=== PATIENT | male | born 1935 | race Caucasian/White ===

== ENCOUNTER 2016-10-12 12:43 | Emergency (ER) | payer OTHER ==
[2016-10-12 12:52] VITALS: RESP 18
--- NOTE | 2016-10-12 13:05 | CPEKG ---
Heart Rate: 73 RR Interval: 822 P-R Interval: 200 QRSD Interval: 92 QT Interval: 380 QTC Interval: 419 P [place]: -24 QRS [place]: -7 T Wave [place]: 63 EKG Severity - NORMAL ECG - EKG Impression: SINUS RHYTHM Electronically Signed By: Miguel Fuentes 12-Oct-2016 14:01:41
--- NOTE | 2016-10-12 13:06 | EDPHY ---
H & P Stated Complaint: htn /saw pcp last week for same(pcp did not want to start on meds yet) Time Seen by Provider: 10/12/16 12:59 HPI/ROS: CHIEF COMPLAINT: Hypertension HISTORY OF PRESENT ILLNESS: The patient presents to the ED with persistent hypertension for the past week. The patient reportedly checked his blood pressure today and found that it was 210/120 at home. The patient has had some generalized weakness but denies specific headache, chest pain, shortness of breath, numbness, weakness or additional complaints. The patient does have a history of hypertension and was on medications 1 year ago. Those medications were stopped after he was diagnosed with a pulmonary embolism. The patient currently takes Eliquis as his only medication. The patient did see his primary care provider earlier in the week who is reluctant to restart medications for hypertension based upon the patient's intermittent hypertension. REVIEW OF SYSTEMS: A comprehensive 10 point review of systems is otherwise negative aside from elements mentioned in the history of present illness. Source: Patient Exam Limitations: No limitations - Personal History Current Tetanus/Diphtheria Vaccine: Yes Tetanus Vaccine Date: < 10 years - Medical/Surgical History Hx Asthma: No Hx Chronic Respiratory Disease: No Hx Diabetes: No Hx Cardiac Disease: Yes Hx Renal Disease: No Hx Cirrhosis: No Hx Alcoholism: No Hx HIV/AIDS: No Hx Splenectomy or Spleen Trauma: No Other PMH: Chronic bronchitis, asthma, PNA, HTN, macular degeneration, spinal stenosis, hernia repiar/PE - Social History Smoking Status: Never smoked Constitutional: Initial Vital Signs Temperature (C) 36.3 C 10/12/16 12:48 Heart Rate 88 10/12/16 12:48 Respiratory Rate 18 10/12/16 12:48 Blood Pressure 175/118 H 10/12/16 12:48 O2 Sat (%) 97 10/12/16 12:48 O2 Delivery Mode Room Air Allergies/Adverse Reactions: No Known Allergies Allergy (Verified 10/12/16 12:44) Home Medications: Medication Instructions Recorded Herbals/Supplements -Info Only 1 ea PO DAILY 09/12/15 Apixaban [Eliquis] 5 mg PO BID #45 tablet 09/19/15 Apixaban [Eliquis] 5 mg PO BID #14 tablet 10/12/16 amLODIPine BESYLATE [Norvasc 2.5 2.5 mg PO DAILY #30 tab 10/12/16 mg (*)] Medical Decision Making - Diagnostics EKG Interpretation: EKG: Complete interpretation has been separately recorded in the [employer] archive. Summary impression: Sinus rhythm, rate 73 ED Course/Re-evaluation: I reviewed the patient's past medical records. I did do a Chem 7 which demonstrates normal renal function. The patient has no evidence of ischemia on his EKG. The patient has a normal neurologic examination. The patient was given 2.5 mg of Norvasc in the emergency department. His blood pressure has come down to 156/98. The patient will be discharged home with a prescription for Norvasc 2.5 mg daily given his history of fairly reproducible hypertension over the past week. The patient is also given a short prescription for Eliquis says he is almost out. The patient will follow up with his regular physician for a blood pressure recheck in the next week. He does understand to return to the ED for chest pain, shortness of breath, headache, numbness, weakness or other concerns. Differential Diagnosis: Differential diagnosis considered includes hypertensive emergency, stroke, TIA, arrhythmia, renal failure - Data Points Laboratory Results: Laboratory Results 10/12/16 13:10 10/12/16 13:10 Sodium 140 mEq/L (134-144) Potassium 4.3 mEq/L (3.5-5.2) Chloride 107 mEq/L (97-110) Carbon Dioxide 25 mEq/l (22-31) Anion Gap 8 mEq/L (8-16) BUN 18 mg/dL (7-23) Creatinine 0.8 mg/dL (0.7-1.3) Estimated GFR > 60 Glucose 105 H mg/dL (70-100) Calcium 9.1 mg/dL (8.5-10.4) Medications Given: Discontinued Medications Amlodipine Besylate (Norvasc) 2.5 mg PO EDNOW ONE Stop: 10/12/16 13:14 Last Admin: 10/12/16 13:43 Dose: 2.5 mg Departure - Departure Disposition: Home, Routine, Self-Care Clinical Impression: Hypertension, History of pulmonary embolism Condition: Good Instructions: Hypertension (ED) Additional Instructions: 1. Please begin Norvasc daily. Please hold for blood pressure less than 120/ 80. 2. Please follow up with Dr. Burgos for a blood pressure recheck in the next 1-2 weeks. 3. Please return to the ED for any chest pain, shortness of breath, headache, numbness, weakness or other concerns. Referrals: ANUP BURGOS [Primary Care Provider] - As per Instructions Prescriptions: Apixaban [Eliquis] 5 mg PO BID #14 tablet amLODIPine BESYLATE [Norvasc 2.5 mg (*)] 2.5 mg PO DAILY #30 tab
[2016-10-12 13:34] LABS: ANION GAP 8 mEq/L (8-16); CALCIUM 9.1 mg/dL (8.5-10.4); CARBON DIOXIDE 25 mEq/l (22-31); CHLORIDE 107 mEq/L (97-110); CREATININE 0.8 mg/dL (0.7-1.3); GLOMERULAR FILTRATION RATE > 60; GLUCOSE 105 mg/dL (70-100); POTASSIUM 4.3 mEq/L (3.5-5.2); SODIUM 140 mEq/L (134-144)
[2016-10-12 14:02] VITALS: BP 149/92; PULSE 77; TEMP 98.6; O2SAT 95
== END 2016-10-12 14:02 | disposition home or self-care (01) ==
DX: I10 Essential (primary) hypertension (principal); J45.909 Unspecified asthma, uncomplicated; Z86.711 Personal history of pulmonary embolism

== ENCOUNTER 2016-12-02 10:30 | Inpatient (IN) | payer OTHER ==
--- NOTE | 2016-12-02 10:53 | CPEKG ---
Heart Rate: 100 RR Interval: 600 P-R Interval: 172 QRSD Interval: 146 QT Interval: 384 QTC Interval: 496 P [place]: 31 QRS [place]: 4 T Wave [place]: 35 EKG Severity - ABNORMAL ECG - EKG Impression: SINUS TACHYCARDIA EKG Impression: RIGHT BUNDLE BRANCH BLOCK Electronically Signed By: Darrick Aguilar 02-Dec-2016 12:37:53
--- NOTE | 2016-12-02 10:58 | EDPHY ---
H & P Time Seen by Provider: 12/02/16 10:57 HPI/ROS: CHIEF COMPLAINT: Abdominal pain HISTORY OF PRESENT ILLNESS: Patient is a history of pulmonary embolism and is on Eliquis anticoagulation. Yesterday started feeling on well and then this morning got right upper abdominal pain which radiates into his back and became severe bringing him to the ER. It is associated with nausea and vomiting. No diarrhea and no coffee-ground emesis or hematemesis. REVIEW OF SYSTEMS: Eye: no change in vision ENT: no sore throat Cardiac: no chest pain or syncope Pulmonary: no cough or SOB Abdomen: HPI Musculoskeletal: no back pain Skin: no rash Neuro: no headache Constitutional: no fever : no urinary symptoms A comprehensive 10 point review of systems is otherwise negative aside from elements mentioned in the history of present illness. PAST MEDICAL HISTORY: Pulmonary embolism on Eliquis, asthma, hypertension, spinal stenosis. Social history: Nonsmoker does have alcohol daily. General Appearance: Alert and conversant, cooperative. Eyes: No scleral icterus. ENT, Mouth: Normal mucous membranes. Respiratory: Normal respiratory effort, breath sounds equal, lungs are clear to auscultation. Cardiovascular: Regular rate and rhythm. Gastrointestinal: Right upper quadrant and epigastric tenderness but no rebound or guarding. Neurological: Alert and oriented x3. Normally conversant. Face symmetric, normal movement and sensation in all extremities. Skin: Warm and dry, no rashes. Musculoskeletal: No peripheral edema and no joint swelling. Psychiatric: Not agitated. Emergency Department course/MDM: Fentanyl 100 mcg IV for pain, Zofran 4 mg IV. Normal saline 1 L IV for nausea and vomiting. Plan for labs to include lipase and right upper quadrant ultrasound. 1201: Results discussed. Ultrasound at this point reported by Dr. Lopez as gallstones with thickened gallbladder wall up to 12 mm. Likely gallstone pancreatitis with chills, IV fluid resuscitation and meropenem 1 g IV. Admission to hospital with surgery and GI consultation. Smoking Status: Never smoked Constitutional: Initial Vital Signs Temperature (C) 36.2 C 12/02/16 10:35 Heart Rate 104 H 12/02/16 10:35 Respiratory Rate 20 12/02/16 10:35 Blood Pressure 169/104 H 12/02/16 10:35 O2 Sat (%) 92 12/02/16 10:35 O2 Delivery Mode Room Air Allergies/Adverse Reactions: No Known Allergies Allergy (Verified 12/02/16 10:46) Home Medications: Medication Instructions Recorded Apixaban [Eliquis] 5 mg PO BID #45 tablet 09/19/15 amLODIPine BESYLATE [Norvasc 2.5 2.5 mg PO DAILY #30 tab 10/12/16 mg (*)] Medical Decision Making Differential Diagnosis: Differential considered including but not limited to pancreatitis, cholecystitis , peptic ulcer disease, recurrent pulmonary embolism. Consult/Admit Bed Type: [facility] 1208, [facility] 1212, [facility] 1219 - Data Points Laboratory Results: Laboratory Results 12/02/16 11:00 12/02/16 11:00 12/02/16 12/02/16 11:00 11:00 WBC 9.14 10^3/uL 10^3/uL (3.80-9.50) RBC 4.60 10^6/uL 10^6/uL (4.40-6.38) Hgb 14.4 g/dL g/dL (13.7-17.5) Hct 43.0 % % (40.0-51.0) MCV 93.5 fL fL (81.5-99.8) MCH 31.3 pg pg (27.9-34.1) MCHC 33.5 g/dL g/dL (32.4-36.7) RDW 14.5 % % (11.5-15.2) Plt Count 185 10^3/uL 10^3/uL (150-400) MPV 9.8 fL fL (8.7-11.7) Neut % (Auto) 92.0 % H % (39.3-74.2) Lymph % (Auto) 5.0 % L % (15.0-45.0) [place] % (Auto) 2.0 % L % (4.5-13.0) Eos % (Auto) 0.3 % L % (0.6-7.6) Baso % (Auto) 0.2 % L % (0.3-1.7) Nucleat RBC Rel Count 0.0 % % (0.0-0.2) Absolute Neuts (auto) 8.40 10^3/uL H 10^3/uL (1.70-6.50) Absolute Lymphs (auto) 0.46 10^3/uL L 10^3/uL (1.00-3.00) Absolute Monos (auto) 0.18 10^3/uL L 10^3/uL (0.30-0.80) Absolute Eos (auto) 0.03 10^3/uL 10^3/uL (0.03-0.40) Absolute Basos (auto) 0.02 10^3/uL 10^3/uL (0.02-0.10) Absolute Nucleated RBC 0.00 10^3/uL 10^3/uL (0-0.01) Immature Gran % 0.5 % % (0.0-1.1) Immature Gran # 0.05 10^3/uL 10^3/uL (0.00-0.10) Sodium 138 mEq/L mEq/L (134-144) Potassium 4.1 mEq/L mEq/L (3.5-5.2) Chloride 104 mEq/L mEq/L (97-110) Carbon Dioxide 24 mEq/l mEq/l (22-31) Anion Gap 10 mEq/L mEq/L (8-16) BUN 19 mg/dL mg/dL (7-23) Creatinine 0.9 mg/dL mg/dL (0.7-1.3) Estimated GFR > 60 Glucose 166 mg/dL H mg/dL (70-100) Calcium 9.3 mg/dL mg/dL (8.5-10.4) Total Bilirubin 3.1 mg/dL H mg/dL (0.1-1.4) Conjugated Bilirubin 1.5 mg/dL H mg/dL (0.0-0.5) Unconjugated Bilirubin 1.6 mg/dL H mg/dL (0.0-1.1) AST 180 IU/L H IU/L (17-59) ALT 99 IU/L H IU/L (21-72) Alkaline Phosphatase 117 IU/L IU/L (38-126) Troponin I < 0.012 ng/mL ng/mL (0-0.034) Total Protein 6.4 g/dL g/dL (6.3-8.2) Albumin 3.7 g/dL g/dL (3.5-5.0) Lipase 4657.0 IU/L H IU/L (23-300) Medications Given: Discontinued Medications Fentanyl (Sublimaze) 100 mcg IVP EDNOW ONE Stop: 12/02/16 11:08 Last Admin: 12/02/16 11:27 Dose: Not Given Fentanyl (Sublimaze) 50 mcg IVP EDNOW ONE Stop: 12/02/16 12:21 Last Admin: 12/02/16 12:33 Dose: 50 mcg Sodium Chloride (Ns) 1,000 mls @ 0 mls/hr IV ONCE ONE PRN Reason: Wide Open Stop: 12/02/16 11:08 Last Admin: 12/02/16 11:27 Dose: 1,000 mls Meropenem 1 gm/ Sodium (Chloride) 120 mls @ 120 mls/hr IV EDNOW ONE PRN Reason: Protocol Stop: 12/02/16 13:00 Last Admin: 12/02/16 12:32 Dose: 120 mls Sodium Chloride (Ns) 1,000 mls @ 0 mls/hr IV ONCE ONE PRN Reason: Wide Open Stop: 12/02/16 12:09 Last Admin: 12/02/16 13:12 Dose: 1,000 mls Ondansetron HCl (Zofran) 4 mg IVP EDNOW ONE Stop: 12/02/16 11:08 Last Admin: 12/02/16 11:28 Dose: 4 mg Departure - Departure Disposition: [facility] In[facility] Acute Clinical Impression: Gallstone pancreatitis Nausea & vomiting Qualifiers: Vomiting type: unspecified Vomiting Intractability: non-intractable Qualified Code(s): R11.2 - Nausea with vomiting, unspecified Condition: Fair
[2016-12-02] MEDS ORDERED: fentaNYL 100 MCG/2 ML INJ IVP ONE ×2 (11:07→12:20)
[2016-12-02] MEDS ORDERED: ONDANSETRON 4 MG/2 ML VIAL IVP ONE (11:07)
[2016-12-02] MEDS ORDERED: NS 1,000 ML IV ONE ×2 (11:07→12:08)
[2016-12-02 11:14] LABS: % IMMATURE GRANULYOCYTES 0.5 % (0.0-1.1); ABSOLUTE IMMATURE GRANULOCYTES 0.05 10^3/uL (0.00-0.10); ADD DIFF? NO; ADD MORPH? NO; ADD SCAN? NO; ATYPICAL LYMPHOCYTE FLAG 0 (0-99); FRAGMENT RBC FLAG 0 (0-99); HEMOGLOBIN 14.4 g/dL (13.7-17.5); LEFT SHIFT FLG 0 (0-99); LIPEMIA HEMOLYSIS FLAG 80 (0-99); MEAN CELL HEMOGLOBIN 31.3 pg (27.9-34.1); MEAN CELL HEMOGLOBIN CONCENTR. 33.5 g/dL (32.4-36.7); MEAN CELL VOLUME 93.5 fL (81.5-99.8); MEAN PLATELET VOLUME 9.8 fL (8.7-11.7); PLATELET CLUMPS FLAG 0 (0-99); PLATELET COUNT 185 10^3/uL (150-400); RED CELL DISTRIBUTION WIDTH 14.5 % (11.5-15.2)
[2016-12-02 11:28] LABS: ALANINE AMINOTRANSFERASE 99 IU/L (21-72); ALBUMIN 3.7 g/dL (3.5-5.0); ALKALINE PHOSPHATASE 117 IU/L (38-126); ANION GAP 10 mEq/L (8-16); ASPARTATE AMINOTRANSFERASE 180 IU/L (17-59); BILIRUBIN,TOTAL 3.1 mg/dL (0.1-1.4); BILIRUBIN-CONJUGATED 1.5 mg/dL (0.0-0.5); BILIRUBIN-UNCONJUGATED 1.6 mg/dL (0.0-1.1); CALCIUM 9.3 mg/dL (8.5-10.4); CARBON DIOXIDE 24 mEq/l (22-31); CHLORIDE 104 mEq/L (97-110); CREATININE 0.9 mg/dL (0.7-1.3); GLOMERULAR FILTRATION RATE > 60; GLUCOSE 166 mg/dL (70-100); POTASSIUM 4.1 mEq/L (3.5-5.2); SODIUM 138 mEq/L (134-144); TOTAL PROTEIN 6.4 g/dL (6.3-8.2)
[2016-12-02 11:39] LABS: TROPONIN I < 0.012 ng/mL (0-0.034)
[2016-12-02] MEDS ORDERED: MEROPENEM 1 GM in NS 100 ML IV ONE (12:01)
--- NOTE | 2016-12-02 13:25 | GCON ---
[f rep st] CONSULTATION DATE OF CONSULTATION: 12/02/2016 REFERRING PHYSICIAN: Talia Feliz MD REASON FOR CONSULTATION: Acute pancreatitis. CHIEF COMPLAINT: Abdominal pain. HISTORY OF PRESENT ILLNESS: Mr. Mckeon is an 81-year-old male with a history of pulmonary embolism on Eliquis, asthma, hypertension, who presents to [facility] with complaints of abdominal pain. The patient states that he was doing well until yesterday when he suddenly started to feel a pain in the midepigastrium and right upper quadrant. This pain radiates throughout his whole abdomen and occasionally to the back. His pain has become progressively worse and he thus came for further evaluation. He did complain of nausea and did have an episode of vomiting in the ER. He denies any exacerbating or alleviating factors to his symptoms. On admission to the hospital, the patient had blood work, which did reveal an elevated lipase of 4657, as well as an elevated AST of 180, ALT of 99. He had an ultrasound performed which did reveal cholelithiasis with gallbladder thickening. No common bile duct dilation was noted. I am asked by Dr. Feliz to see the patient in consultation regarding his acute pancreatitis. PAST MEDICAL HISTORY: Pulmonary embolus, asthma, bronchitis, hypertension, macular degeneration, spinal stenosis, diverticulitis. PAST SURGICAL HISTORY: Tonsillectomy, hernia repair ALLERGIES: NKDA. MEDICATIONS: Eliquis 5 mg b.i.d., Norvasc 2.5 mg daily. SOCIAL HISTORY: He drinks alcohol daily. No significant tobacco use. He is currently stressed about a change in his residence. FAMILY HISTORY: Sister had pancreatic cancer. REVIEW OF SYSTEMS: A 12-point comprehensive review was asked. Pertinent positives and negatives as per HPI. PHYSICAL EXAM: VITAL SIGNS: Temperature 36.2, heart rate 92, respiration rate 20, blood pressure 158/72. GENERAL: Awake, alert, oriented x3. In no distress. HEENT: Anicteric. Moist mucosa. NECK: No JVD. CARDIOVASCULAR: Regular rate and rhythm. Positive S1, S2. No murmurs or gallops appreciated. LUNGS: Clear to auscultation bilaterally wheezes, rales or rhonchi. ABDOMEN: Tender in the midepigastrium and right upper quadrant. Slightly distended. No guarding, no rebound. EXTREMITIES: Positive edema. NEUROLOGIC: Cranial nerves II through XII grossly intact. PSYCH: Normal affect. MUSCULOSKELETAL: No joint swelling or deformities noted. SKIN: No icterus. LABORATORY DATA: Blood work: WBCs 9.14, hemoglobin 14.4, hematocrit 43, platelets 185. BUN 19, creatinine 0.9, glucose 166, sodium 138, potassium 4.1. AST 180, ALT 99, alkaline phosphatase 117. Lipase 4657. ASSESSMENT AND PLAN: 1. Acute pancreatitis- biliary. Did have an ultrasound which did show cholelithiasis. Due to a normal alkaline phosphatase and no dilation of the cbd on ultrasound, I have low suspicion for choledocholithiasis. Would recommend significant IV hydration, as well as pancreatic rest. Will keep NPO and IV pain control. Would recommend to check liver function tests tomorrow. If alkaline phospatase becomes elevated, will consider EUS/MRCP/ERCP. Surgery is already on board. 2. History of asthma. 3. History of pulmonary embolus on Eliquis. 4. Hypertension. 5. Spinal stenosis. Thank you very much for this consultation. /[id number]/MODL MTDD
--- NOTE | 2016-12-02 14:02 | SOAPPROG ---
SOAP Progress Note Assessment/Plan: Assessment: 81 MALE WITH LIKELY GALLSTONE PANCREATITIS/ LFTS ELEVATED/ ABD SOFT/ NONICTERIC / US SHOWS THICK WALL AND STONES RISKS AND OPTIONS FULLY DISCUSSED CHEST CLEAR/ COR RR Plan:LAP AMBER WITH GRAMS WHEN LIPASE IMPROVED 12/02/16 13:58 Objective: Vital Signs Temp Pulse Resp BP Pulse Ox 37.9 C 127 H 15 134/77 H 89 L 12/02/16 13:45 12/02/16 13:45 12/02/16 13:45 12/02/16 13:45 12/02/16 13:45 12/01/16 12/02/16 12/03/16 05:59 05:59 05:59 Intake Total 1999 Balance 1999 ICD10 Worksheet Patient Problems: Problems Problem Status Onset Gallstone pancreatitis Acute Abdominal discomfort Acute Elevated troponin Acute Hypokalemia Acute
[2016-12-02] MEDS ORDERED: ONDANSETRON 4 MG/2 ML VIAL IVP PRN (14:57)
[2016-12-02] MEDS ORDERED: HYDROmorphONE/DILAUDID 6 MG/30 ML PCA IV PRN (14:57)
[2016-12-02] MEDS ORDERED: NALOXONE HCL 0.4 MG/ML INJ IVP PRN (14:57)
[2016-12-02] MEDS ORDERED: METOCLOPRAMIDE 10 MG/2 ML VIAL IVP PRN (14:57)
[2016-12-02] MEDS ORDERED: NS 1,000 ML IV SCH (15:00)
--- NOTE | 2016-12-02 15:52 | GHP ---
[f rep st] HISTORY AND PHYSICAL DATE OF ADMISSION: 12/02/2016 HISTORY OF PRESENT ILLNESS: The patient is a pleasant 81-year-old gentleman with a history of large pulmonary embolism about 1 year ago, as well as hypertension, who presents to the emergency departm ent this morning with abdominal pain that began last evening. It was central and this morning it ra diated around his back. He had some nausea. No vomiting. When he got to the emergency department he had 2 large episodes of emesis. He has had no fever, but he has had some chills. He had no know n previous history of cholelithiasis. He has not had diarrhea or shortness of breath. He has been taking his Eliquis as prescribed. He last took it this morning. REVIEW OF SYSTEMS: Complete 10-point review of systems conducted and negative except as noted in th e HPI. PAST MEDICAL HISTORY: 1. Pulmonary embolism diagnosed in September 2015. This is a saddle embolism requiring thrombolysis. 2. Hypertension. 3. History of neck hematoma in the setting of tPA. ALLERGIES: No known drug allergies. HOME MEDICATIONS: Amlodipine and Eliquis. SOCIAL HISTORY: He is originally from [place]. He is currently moving back to [place] to be with his daughter. He has 1 alcoholic beverage a day. He does not smoke cigarettes. FAMILY HISTORY: Parents . PHYSICAL EXAMINATION: VITAL SIGNS: Presenting vitals, temp 36.9, blood pressure 172/108, now 134/7 7, pulse 108, breathing 14 times a minute, 96% on 2 L. GENERAL: No acute distress, lying flat. HE ENT: Sclerae anicteric. Oropharynx clear. Mucous membranes are moist. NECK: Supple, without lym phadenopathy or JVD. LUNGS: Clear to auscultation bilaterally. HEART: S1, S2. Tachycardic. ABD OMEN: It is soft. There is diffuse tenderness, worse in the right upper quadrant. There is no cher ound or guarding. Bowel sounds are present but hypoactive. LOWER EXTREMITIES: No edema. Calves a re nontender. SKIN: Without rash. NEUROLOGIC: Nonfocal. LABORATORY DATA: White count 9, hematocrit 43, platelets are 185,000. There are no coags. Sodium 138, potassium 4.1, chloride 104, bicarb 24, BUN 19, creatinine 0.9, glucose 166, bilirubin is 3.1, AST 180, ALT 99, alk phos 117. Troponin less than 0.012. His lipase is 4657. EKG, interpreted by me, shows sinus tach at 100 with normal axis, right bundle branch block pattern. This right bundle branch block appears to be new. Abdominal ultrasound shows cholelithiasis with gallbladder wall thickening, consistent with acute ch olecystitis, minimal pancreatic fluid or edema, and probable hepatic hemangioma. I have discussed t he case with Dr. Arnulfo Mane and Dr. Darrick Aguilar. ASSESSMENT/PLAN: This is an 81-year-old gentleman with history of large pulmonary embolism greater than 1 year ago, who presents with acute cholecystitis and gallstone pancreatitis. 1. Gallstone pancreatitis. N.p.o. IV fluids. He needs a cholecystectomy. I will give him a PATIENT RELATIONS MANAGER and IV nausea medicines. We await cholecystectomy. 2. Acute cholecystitis. The patient has no peritoneal signs. We will follow his LFTs daily. Dr. Mane will operate on him when his Eliquis has worn off. 3. Right bundle branch block pattern. I suppose this is either rate dependent or a result of the s equelae of his prior large pulmonary embolism. Interestingly, it was not seen on prior EKGs. He noble s not been tachycardic on these other EKGs. I do not think this represents an ischemic event. Ther natali was history of large PE, has high risk for recurrence. We will hold his Eliquis for now and provi de SCDs for prophylaxis when he is probably postop day 1. We will start subcu heparin and then burnett sition to oral Eliquis. 4. Pain. Dilaudid PATIENT RELATIONS MANAGER. 5. Nausea. P.r.n. Reglan and Zofran. CODE STATUS: Full. DISPOSITION: Inpatient. /[id number]/MODL
[2016-12-02] MEDS: ERTAPENEM 1 GM in NS 100 ML IV SCH (17:17)
[2016-12-03 04:54] LABS: APTT 30.3 SEC (23.0-38.0); INR 1.23 (0.83-1.16); PROTIME(PATIENT) 15.5 SEC (12.0-15.0)
[2016-12-03 05:02] LABS: % IMMATURE GRANULYOCYTES 0.5 % (0.0-1.1); ABSOLUTE IMMATURE GRANULOCYTES 0.04 10^3/uL (0.00-0.10); ADD DIFF? NO; ADD MORPH? NO; ADD SCAN? NO; ATYPICAL LYMPHOCYTE FLAG 10 (0-99); FRAGMENT RBC FLAG 0 (0-99); HEMATOCRIT 35.3 % (40.0-51.0); HEMOGLOBIN 11.7 g/dL (13.7-17.5); LEFT SHIFT FLG 20 (0-99); LIPEMIA HEMOLYSIS FLAG 80 (0-99); MEAN CELL HEMOGLOBIN 30.7 pg (27.9-34.1); MEAN CELL HEMOGLOBIN CONCENTR. 33.1 g/dL (32.4-36.7); MEAN CELL VOLUME 92.7 fL (81.5-99.8); PLATELET CLUMPS FLAG 10 (0-99); PLATELET COUNT 150 10^3/uL (150-400); RED BLOOD CELL COUNT 3.81 10^6/uL (4.40-6.38); RED CELL DISTRIBUTION WIDTH 15.1 % (11.5-15.2)
[2016-12-03 05:07] LABS: ALBUMIN 2.7 g/dL (3.5-5.0)
[2016-12-03 05:09] LABS: ALANINE AMINOTRANSFERASE 279 IU/L (21-72); ALKALINE PHOSPHATASE 117 IU/L (38-126); ANION GAP 6 mEq/L (8-16); ASPARTATE AMINOTRANSFERASE 285 IU/L (17-59); BILIRUBIN,TOTAL 5.4 mg/dL (0.1-1.4); BILIRUBIN-CONJUGATED 2.2 mg/dL (0.0-0.5); BILIRUBIN-UNCONJUGATED 3.2 mg/dL (0.0-1.1); CALCIUM 8.2 mg/dL (8.5-10.4); CARBON DIOXIDE 22 mEq/l (22-31); CHLORIDE 111 mEq/L (97-110); CREATININE 0.9 mg/dL (0.7-1.3); GLOMERULAR FILTRATION RATE > 60; GLUCOSE 113 mg/dL (70-100); SODIUM 139 mEq/L (134-144)
[2016-12-03] MEDS: ERTAPENEM 1 GM in NS 100 ML IV SCH (09:57)
--- NOTE | 2016-12-03 10:13 | SOAPPROG ---
SOAP Progress Note Assessment/Plan: Assessment: 81yo M admitted with gallstone pancreatitis Lipase improved today LFTs increasing Lap nathaniel with IOC today by Dr. Mane. NPO, consent in chart. IV antibiotics OCTOR Discussed c Dr. Mane S: pain resolved. no nausea or vomiting. Hungry O: Laying in bed, comfortable, NAD No icterus or jaundice No increased WOB +BS, soft, distended, nontender Objective: Vital Signs Temp Pulse Resp BP Pulse Ox 36.7 C 70 18 139/86 H 96 12/03/16 08:25 12/03/16 08:25 12/03/16 08:25 12/03/16 08:25 12/03/16 08:25 Laboratory Results 12/03/16 04:28 12/03/16 04:28 12/02/16 12/03/16 12/04/16 05:59 05:59 05:59 Intake Total 4093 Output Total 150 Balance 3943 PT 15.5 SEC (12.0-15.0) H 12/03/16 04:28 INR 1.23 (0.83-1.16) H 12/03/16 04:28 ICD10 Worksheet Patient Problems: Problems Problem Status Onset Gallstone pancreatitis Acute Abdominal discomfort Acute Elevated troponin Acute Hypokalemia Acute
--- NOTE | 2016-12-03 10:25 | HOSPPROG ---
Hospitalist Progress Note Assessment/Plan: 81 yo M w saddle PE 1 year ago here w gallstone pancreatitis, acute cholecystitis pancreatitis: pain improved lipase decreased currently NPO for surgery but reasonable to feed afte rOR acute cholecystitis: elevated lft's and + ultrasound laparoscopy cholecystectomy today saddle PE: eliquis held since yesterday AM ideally, would resume eliquis AM 12/04, but if concerns for surgical bleeding reasonable to treat w prophylactic LMWH for 1-2 days PE > 1 year ago proph: asa jameel RBBB: likely sequela of large PE dispo: inpatient Subjective: pain improved. case d/w dr campbell Objective: Vital Signs Temp Pulse Resp BP Pulse Ox 36.7 C 70 18 139/86 H 96 12/03/16 08:25 12/03/16 08:25 12/03/16 08:25 12/03/16 08:25 12/03/16 08:25 Laboratory Results 12/03/16 04:28 12/03/16 04:28 12/02/16 12/03/16 12/04/16 05:59 05:59 05:59 Intake Total 4093 Output Total 150 Balance 3943 PT 15.5 SEC (12.0-15.0) H 12/03/16 04:28 INR 1.23 (0.83-1.16) H 12/03/16 04:28 - Physical Exam Constitutional: no apparent distress, appears nourished Eyes: PERRL, anicteric sclera Ears, Nose, Mouth, Throat: moist mucous membranes, hearing normal Cardiovascular: regular rate and rhythym, no murmur, rub, or gallop Respiratory: no respiratory distress, no rales or rhonchi Gastrointestinal: normoactive bowel sounds, soft, non-tender abdomen, other (no lugo's sign) Genitourinary: no bladder fullness, No arteaga in urethra Skin: warm, normal color Musculoskeletal: full muscle strength Neurologic: AAOx3 ICD10 Worksheet Patient Problems: Problems Problem Status Onset Gallstone pancreatitis Acute Abdominal discomfort Acute Elevated troponin Acute Hypokalemia Acute
[2016-12-03] MEDS ORDERED: MIDAZOLAM 2 MG/2 ML VIAL ONE (19:26)
[2016-12-03] MEDS ORDERED: HEPARIN 1000 UNIT/1 ML MDV ONE (19:32)
[2016-12-03] MEDS ORDERED: BUPIVACAINE 0.5% 30 ML SDV ONE (19:32)
[2016-12-03] MEDS ORDERED: LIDOCAINE 2% 100 MG/5 ML SYR ONE (19:32)
[2016-12-03] MEDS ORDERED: DEXAMETHASONE 4 MG/ML VIAL ONE (19:32)
[2016-12-03] MEDS ORDERED: ROCURONIUM 50 MG/5 ML VIAL ONE (19:32)
[2016-12-03] MEDS ORDERED: fentaNYL 100 MCG/2 ML INJ ONE ×3 (19:32→21:48)
[2016-12-03] MEDS ORDERED: PROPOFOL 200 MG/20 ML VIAL ONE (19:32)
[2016-12-03] MEDS ORDERED: IOPAMIDOL (ISOVUE-300) 150 ML BTL IV ONE (19:32)
[2016-12-03] MEDS ORDERED: ceFAZolin 1 GM/5 ML SYR ONE (19:33)
[2016-12-03] MEDS ORDERED: IOTHALAMATE MEG (CONRAY) 50 ML VIAL IV ONE (20:01)
[2016-12-03] MEDS ORDERED: LABETALOL HCL 5 MG/ML 20 ML MDV ONE (20:45)
[2016-12-03] MEDS ORDERED: SUGAMMADEX SODIUM 200 MG/2 ML VIAL IVP ONE (20:47)
--- NOTE | 2016-12-03 21:05 | SOAPPROG ---
SOAP Progress Note Assessment/Plan: Assessment: 81 MALE WITH LIKELY GALLSTONE PANCREATITIS/ LFTS ELEVATED/ ABD SOFT/ NONICTERIC / US SHOWS THICK WALL AND STONES RISKS AND OPTIONS FULLY DISCUSSED CHEST CLEAR/ COR RR Plan:LAP AMBER WITH GRAMS WHEN LIPASE IMPROVED 12/02/16 13:58 12/03/16 21:04 AGAIN DISCUSSED RISKS AND OPTIONS AND HE WISHES TO PROCEED/ PLAN LAP AMBER WITH GRAMS Objective: Vital Signs Temp Pulse Resp BP Pulse Ox 36.6 C 76 18 164/9 H 98 12/03/16 16:37 12/03/16 16:37 12/03/16 16:37 12/03/16 16:37 12/03/16 16:37 Laboratory Results 12/03/16 04:28 12/03/16 04:28 12/02/16 12/03/16 12/04/16 05:59 05:59 05:59 Intake Total 4093 1000 Output Total 150 150 Balance 3943 850 PT 15.5 SEC (12.0-15.0) H 12/03/16 04:28 INR 1.23 (0.83-1.16) H 12/03/16 04:28 ICD10 Worksheet Patient Problems: Problems Problem Status Onset Gallstone pancreatitis Acute Abdominal discomfort Acute Elevated troponin Acute Hypokalemia Acute
--- NOTE | 2016-12-03 21:07 | POSTOPPROG ---
Post Op Note Date of Operation: 12/03/16 Surgeon: Kostas Mane Cushion Builder: Concepción Kurtz PA-C, ANNA Bay MS, James Panchal MS Anesthesiologist: Na Milner MD Pre-op Diagnosis: Gallstones Post-op Diagnosis: same Procedure: Lap nathaniel with cholangiogram Findings: gallstones Inf/Abcess present in the surg proc area at time of surgery?: No EBL: 50-100 Complications: none Specimen(s): gallbladder, liver biopsy to path
--- NOTE | 2016-12-03 21:08 | POSTOPPROG ---
Post Op Note Date of Operation: 12/03/16 Surgeon: Kostas Mane Gambling Supervisor: ZULEYKA Anesthesiologist: SAADIA Anesthesia: GET(General Endotracheal) Pre-op Diagnosis: ACUTE AMBER AND PANCREATITIS Post-op Diagnosis: SAME Indication: PAIN AND ABNORMAL LFTS Procedure: LAP AMBER WITH GRAMS, WEDGE LIVER BX Findings: ACUTE AMBER WITH CLEAR GRAMS/ FATTY LIVER Inf/Abcess present in the surg proc area at time of surgery?: No Depth: Organ Space EBL: Minimal Complications: 0 Specimen(s): GALLBLADDER AND LIVER BX
[2016-12-03] MEDS ORDERED: OXYCODONE/APAP 5/325 TAB PO PRN (21:10)
[2016-12-03] MEDS ORDERED: D5W 1/2 NS W/ 20 KCl/L 1,000 ML IV SCH (21:15)
[2016-12-04 05:36] LABS: % IMMATURE GRANULYOCYTES 0.4 % (0.0-1.1); ABSOLUTE IMMATURE GRANULOCYTES 0.03 10^3/uL (0.00-0.10); ADD DIFF? NO; ADD MORPH? NO; ADD SCAN? NO; ATYPICAL LYMPHOCYTE FLAG 0 (0-99); FRAGMENT RBC FLAG 0 (0-99); HEMATOCRIT 37.6 % (40.0-51.0); HEMOGLOBIN 12.4 g/dL (13.7-17.5); LEFT SHIFT FLG 0 (0-99); LIPEMIA HEMOLYSIS FLAG 80 (0-99); MEAN CELL HEMOGLOBIN 31.4 pg (27.9-34.1); MEAN CELL VOLUME 95.2 fL (81.5-99.8); MEAN PLATELET VOLUME 9.9 fL (8.7-11.7); PLATELET CLUMPS FLAG 20 (0-99); PLATELET COUNT 146 10^3/uL (150-400); RED BLOOD CELL COUNT 3.95 10^6/uL (4.40-6.38); RED CELL DISTRIBUTION WIDTH 14.7 % (11.5-15.2)
[2016-12-04 05:56] LABS: ALANINE AMINOTRANSFERASE 209 IU/L (21-72); ALBUMIN 2.9 g/dL (3.5-5.0); ALKALINE PHOSPHATASE 121 IU/L (38-126); AMYLASE 49 IU/L (30-110); ANION GAP 7 mEq/L (8-16); ASPARTATE AMINOTRANSFERASE 162 IU/L (17-59); BILIRUBIN,TOTAL 3.2 mg/dL (0.1-1.4); BILIRUBIN-CONJUGATED 0.8 mg/dL (0.0-0.5); BILIRUBIN-UNCONJUGATED 2.4 mg/dL (0.0-1.1); CALCIUM 8.3 mg/dL (8.5-10.4); CARBON DIOXIDE 23 mEq/l (22-31); CHLORIDE 107 mEq/L (97-110); CREATININE 0.8 mg/dL (0.7-1.3); GLOMERULAR FILTRATION RATE > 60; GLUCOSE 163 mg/dL (70-100); POTASSIUM 4.4 mEq/L (3.5-5.2); SODIUM 137 mEq/L (134-144); TOTAL PROTEIN 5.2 g/dL (6.3-8.2)
[2016-12-04] MEDS: ERTAPENEM 1 GM in NS 100 ML IV SCH (08:56)
--- NOTE | 2016-12-04 11:41 | SOAPPROG ---
SOAP Progress Note Assessment/Plan: Assessment/Plan: 81 year old male s/p lap nathaniel with cholangiogram and wedge liver bx May advance to a low-fat diet. Norvasc restarted today and Eliquis to be resumed tomorrow. Encourage early ambulation. Continue routine wound care. Gallbladder and liver bx path pending. S: Pleasantly talkative and in good spirits about his recovery. Not in pain while laying down, has appropriate pain from incision sites. Has passed gas and had a small bowel movement. Ready to get up and walk around. O: gen-awake, alert, nad heent-mmm, non-icteric sclera chest-ctab cor-rrr abd-right port incision bleeding slightly and covered with gauze, other port incisions dry and intact, hypoactive BS ext-no edema 12/04/16 11:31 12/04/16 11:41 Objective: Vital Signs Temp Pulse Resp BP Pulse Ox 36.6 C 80 16 162/94 H 96 12/04/16 07:54 12/04/16 07:54 12/04/16 07:54 12/04/16 07:54 12/04/16 07:54 Laboratory Results 12/04/16 05:32 12/04/16 05:32 12/03/16 12/04/16 12/05/16 05:59 05:59 05:59 Intake Total 4093 3125 Output Total 150 505 Balance 3943 2620 PT 15.5 SEC (12.0-15.0) H 12/03/16 04:28 INR 1.23 (0.83-1.16) H 12/03/16 04:28 ICD10 Worksheet Patient Problems: Problems Problem Status Onset Gallstone pancreatitis Acute Abdominal discomfort Acute Elevated troponin Acute Hypokalemia Acute
--- NOTE | 2016-12-04 12:31 | HOSPPROG ---
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 Resume Eliquis per surgery tomorrow #Pancreatitis: LFTs trending down. 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 #Benign HTN: Norvasc #Diet: low-fat #SCDs #Disp: if tolerating PO, possible DC tomorrow Subjective: tolerated liquid diet Objective: Vital Signs Temp Pulse Resp BP Pulse Ox 36.6 C 77 16 145/90 H 94 12/04/16 11:55 12/04/16 11:55 12/04/16 11:55 12/04/16 11:55 12/04/16 11:55 Laboratory Results 12/04/16 05:32 12/04/16 05:32 12/03/16 12/04/16 12/05/16 05:59 05:59 05:59 Intake Total 4093 3125 Output Total 150 505 Balance 3943 2620 PT 15.5 SEC (12.0-15.0) H 12/03/16 04:28 INR 1.23 (0.83-1.16) H 12/03/16 04:28 - Physical Exam Constitutional: no apparent distress Eyes: PERRL Ears, Nose, Mouth, Throat: moist mucous membranes, hearing normal Cardiovascular: no murmur, rub, or gallop Respiratory: no respiratory distress, no rales or rhonchi Gastrointestinal: normoactive bowel sounds, soft, non-tender abdomen, other ( surgical incisions dressed. C/D/I) Genitourinary: no bladder fullness Skin: warm Musculoskeletal: full muscle strength Neurologic: AAOx3 Psychiatric: interacting appropriately ICD10 Worksheet Patient Problems: Problems Problem Status Onset Elevated troponin Acute Hypokalemia Acute Abdominal discomfort Acute Gallstone pancreatitis Acute
[2016-12-05 05:39] LABS: % IMMATURE GRANULYOCYTES 0.5 % (0.0-1.1); ABSOLUTE IMMATURE GRANULOCYTES 0.03 10^3/uL (0.00-0.10); ADD DIFF? NO; ADD MORPH? NO; ADD SCAN? NO; ATYPICAL LYMPHOCYTE FLAG 0 (0-99); FRAGMENT RBC FLAG 0 (0-99); HEMATOCRIT 36.1 % (40.0-51.0); HEMOGLOBIN 11.8 g/dL (13.7-17.5); LEFT SHIFT FLG 0 (0-99); LIPEMIA HEMOLYSIS FLAG 80 (0-99); MEAN CELL HEMOGLOBIN 30.8 pg (27.9-34.1); MEAN CELL HEMOGLOBIN CONCENTR. 32.7 g/dL (32.4-36.7); MEAN CELL VOLUME 94.3 fL (81.5-99.8); MEAN PLATELET VOLUME 10.2 fL (8.7-11.7); PLATELET CLUMPS FLAG 10 (0-99); PLATELET COUNT 176 10^3/uL (150-400); RED BLOOD CELL COUNT 3.83 10^6/uL (4.40-6.38); RED CELL DISTRIBUTION WIDTH 14.8 % (11.5-15.2)
[2016-12-05 05:53] LABS: ALANINE AMINOTRANSFERASE 142 IU/L (21-72); ALBUMIN 2.6 g/dL (3.5-5.0); ALKALINE PHOSPHATASE 99 IU/L (38-126); ANION GAP 4 mEq/L (8-16); ASPARTATE AMINOTRANSFERASE 75 IU/L (17-59); BILIRUBIN,TOTAL 1.4 mg/dL (0.1-1.4); BILIRUBIN-CONJUGATED 0.3 mg/dL (0.0-0.5); BILIRUBIN-UNCONJUGATED 1.1 mg/dL (0.0-1.1); CALCIUM 8.3 mg/dL (8.5-10.4); CARBON DIOXIDE 26 mEq/l (22-31); CHLORIDE 109 mEq/L (97-110); CREATININE 0.7 mg/dL (0.7-1.3); GLOMERULAR FILTRATION RATE > 60; GLUCOSE 96 mg/dL (70-100); POTASSIUM 3.7 mEq/L (3.5-5.2); SODIUM 139 mEq/L (134-144); TOTAL PROTEIN 4.6 g/dL (6.3-8.2)
[2016-12-05 08:38] VITALS: BP 128/81; PULSE 87; RESP 18; TEMP 97.4; O2SAT 97
[2016-12-05] MEDS ORDERED: APIXABAN 5 MG TAB PO SCH (09:00)
[2016-12-05] MEDS: ERTAPENEM 1 GM in NS 100 ML IV SCH (09:31)
--- NOTE | 2016-12-05 11:22 | SOAPPROG ---
SOAP Progress Note Assessment/Plan: Assessment: 81yo male s/p lap nathaniel tolerating diet, ambulating PE awake alert Chest CTA B/L Abd soft nontender Plan: ok to d/c from surgical perspective discussed f/u with pt, aftercare 12/05/16 11:20 Objective: Vital Signs Temp Pulse Resp BP Pulse Ox 36.3 C 87 18 128/81 H 97 12/05/16 08:36 12/05/16 08:36 12/05/16 08:36 12/05/16 09:30 12/05/16 08:36 Laboratory Results 12/05/16 04:45 12/05/16 04:45 12/04/16 12/05/16 12/06/16 05:59 05:59 05:59 Intake Total 3125 800 Output Total 505 Balance 2620 800 PT 15.5 SEC (12.0-15.0) H 12/03/16 04:28 INR 1.23 (0.83-1.16) H 12/03/16 04:28 ICD10 Worksheet Patient Problems: Problems Problem Status Onset Gallstone pancreatitis Acute Abdominal discomfort Acute Elevated troponin Acute Hypokalemia Acute
--- NOTE | 2016-12-05 11:34 | GDS ---
[f rep st] DISCHARGE SUMMARY DISCHARGE DIAGNOSES: 1. Acute cholecystitis. 2. History of saddle pulmonary embolism. 3. Pancreatitis. 4. Right bundle branch block with benign hypertension. 5. Gallstone pancreatitis. CONSULTATIONS: Surgery. PROCEDURES: Lap cholecystectomy and wedge liver biopsy. HISTORY OF PRESENT ILLNESS: Patient is an 81-year-old male with history of large pulmonary embolism 1 year ago, hypertension, presenting to the emergency room with abdominal pain that radiated to his back. He had some nausea, no vomiting. No fever, but reports chills. He denies chest pain or shortness of breath and has been taking his Eliquis as prescribed. HOSPITAL COURSE BY PROBLEM: 1. Gallstone pancreatitis: Initial lipase was elevated at 4600. Abdominal ultrasound demonstrated acute cholecystitis and Surgery was consulted. Patient was empirically treated with ertapenem and underwent lap cholecystectomy without complication. 2. Acute cholecystitis: Again, patient was treated empirically with IV antibiotics and underwent lap cholecystectomy and now tolerating a low-fat diet. He does not need antibiotics at discharge. Provided post-op precautions. 3. History of saddle pulmonary embolism. Has been hemodynamically stable here. Eliquis was held briefly for surgery, but that has now been resumed. 4. New right bundle branch block: likely due to his prior pulmonary embolism. Again, he is currently hemodynamically stable with a negative troponin. Do not suspect ACS. No further cardiac evaluation at this time. DISPOSITION: Patient is stable for discharge. DISCHARGE MEDICATIONS: New medications: None. /[id number]/MODL MTDD
== END 2016-12-05 14:34 | disposition home or self-care (01) | DRG 418 ==
LOC: F1N 13:13
PROVIDERS: ADMIT Hospitalist; ATTEND Internal Medicine
DX: K85.10 Biliary acute pancreatitis without necrosis or infection (principal); K80.00 Calculus of gallbladder with acute cholecystitis without obstruction; I10 Essential (primary) hypertension; J45.909 Unspecified asthma, uncomplicated; I45.10 Unspecified right bundle-branch block; Z79.01 Long term (current) use of anticoagulants; Z86.711 Personal history of pulmonary embolism
CPT/HCPCS: 96365; J1100; J1335; J2001; J2185; J2250; J2405; J2704; J3010; J3490; Q9961; Q9967

== ENCOUNTER 2018-04-27 | Emergency (ER) | payer OTHER | END 2018-04-27 11:24 | disposition home or self-care (01) ==

== ENCOUNTER 2018-06-06 07:53 | Observation (INO) | payer OTHER ==
--- NOTE | 2018-06-06 09:02 | EDPHY ---
HPI/HX/ROS/PE/MDM Narrative: CHIEF COMPLAINT: Episodes of lightheadedness and loss of consciousness HISTORY OF PRESENT ILLNESS: The patient is an anticoagulated (Eliquis) 82 y/o male with a history of PE (3 years ago) and [facility] with a difficult history. He describes several episodes of lightheadedness and dizziness, causing syncope/loss of consciousness. The first episode occurred in [place] and he struck his head falling out of bed. He was not evaluated after this episode. Last night he awoke on the floor and was confused and unaware of what had happened. Patient reports that the symptoms seem to occur as he is falling asleep. He has a feeling of dread that he will have lightheadedness and dizziness and will faint and thus has been avoiding sleep. He has stressors in his life as he prepares to move out of state and with the state of the country due to the current political climate. He describes tunnel vision at times. He denies chest pain, shortness of breath, room-spinning sensation, or any other associated symptoms. He has a murmur but denies any other cardiac conditions or interventions. No fever, chills, chest pain, shortness of breath, palpitations, vomiting, diarrhea, urinary complaints, or headache. REVIEW OF SYSTEMS: Aside from elements discussed in the HPI, a comprehensive 10-point review of systems was reviewed and is negative. 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 Difficult historian as he struggles to describe the events and how he is feeling. Well-developed, well- nourished, resting comfortably in no respiratory distress. HEENT: Atraumatic. Eyes: PERPL, EOMI. No icterus, no injection. No nystagmus. Mouth: moist mucous membranes. No erythema or lesions. Neck: supple with no adenopathy. LUNGS: Clear to auscultation bilaterally, no wheezes, rhonchi or rales. CARDIAC: Slightly irregular heart rate rate, no rubs, murmurs or gallops. ABDOMEN: Soft, nontender, nondistended, bowel sounds normal. BACK: No CVA tenderness. EXTREMITIES: No trauma. No edema. Range of motion is normal throughout. NEURO: Alert and oriented, motor strength 5/5 throughout. Sensation intact to light touch. Normal [id number]-vq-rquc. Normal speech. SKIN: Warm and dry, no rash. PSYCHIATRIC: Normal mentation, no agitation. ED Course: The patient presents with a difficult history. He describes episodes of dizziness, lightheadedness, and either syncope or loss of consciousness as he is waking on the floor or as he falls out of bed. He has also had sensations of his head "exploding". He has associated sense of dread and at times tunnel vision. Deep breathing seems to improve his symptoms. He denies chest pain or shortness of breath. On the monitor he has some irregular beats and during the exam a slightly irregular heart rate. No other findings. Plan for brain MRI, EKG , CBC, basic metabolic panel, and troponin. EKG demonstrates occasional sinus rhythm. Monitor indicates an occasional PVC. Labs largely unremarkable for cause of the patient's symptom complex. 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 Lopez, radiologist. Patient's course discussed with the hospitalist service. He will be admitted to Med/Surg. Dr. Arechiga will be the admitting physician. MDM: Differential diagnosis of the patient's symptom complex was considered including but not limited to peripheral and central causes of vertigo, cardiac arrhythmias, cardiac ischemia, electrolyte disturbances, neurologic causes, orthostatic causes including dehydration, and blood loss. - Data Points Imaging Results: Brain MRI 06/06/18 09:12 Impression: 1. 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 2. No epidural/subdural hematoma, acute hemorrhage, hydrocephalus, mass effect, or herniation. 3. Moderate diffuse cerebral atrophy. 4. Multiple nonspecific hyperintense T2/FLAIR signal abnormalities in the white matter of bilateral cerebral hemispheres. Differential diagnosis includes severe microvascular ischemic gliosis, versus less likely post-infectious/post- inflammatory sequela. Findings and recommendations discussed with Emergency Department physician, Dr. Bre Landon at 1030 hours on June 06, 2018. Final report concurs with initial preliminary interpretation. Imaging: Discussed imaging studies w/ call center director Radiologist Laboratory Results: Laboratory Results 06/06/18 08:53 06/06/18 08:53 Medications Given: Discontinued Medications Amlodipine Besylate (Norvasc) 2.5 mg PO DAILY [facility] Stop: 12/03/18 11:59 Last Admin: 06/07/18 08:54 Dose: 2.5 mg Apixaban (Eliquis) 5 mg PO BID [facility] Stop: 12/03/18 20:59 Last Admin: 06/07/18 08:54 Dose: 5 mg Aspirin (Aspirin) 81 mg PO DAILY [facility] Stop: 12/04/18 08:59 Last Admin: 06/07/18 08:54 Dose: 81 mg Trazodone HCl (Trazodone) 50 mg PO HS [facility] Stop: 12/03/18 20:59 Last Admin: 06/06/18 20:09 Dose: 50 mg Point of Care Test Results: Chemistry 06/06/18 09:02 POC Troponin I 0.02 ng/mL ng/mL (0.00-0.08) General Time Seen by Provider: 06/06/18 08:24 Initial Vital Signs: Initial Vital Signs Temperature (C) 36.4 C 06/06/18 07:57 Heart Rate 90 06/06/18 07:57 Respiratory Rate 18 06/06/18 07:57 Blood Pressure 184/106 H 06/06/18 07:57 O2 Sat (%) 92 06/06/18 07:57 O2 Delivery Mode Room Air Allergies/Adverse Reactions: No Known Allergies Allergy (Verified 06/06/18 07:55) Home Medications: Medication Instructions Recorded amLODIPine BESYLATE [Norvasc 2.5 2.5 mg PO DAILY #30 tab 10/12/16 mg (*)] Apixaban [Eliquis] 5 mg PO BID 12/02/16 Herbals/Supplements -Info Only 1 ea PO DAILY 06/06/18 Aspirin [Aspirin 81mg (*)] 81 mg PO DAILY tab.chew 06/07/18 traZODone [traZODONE 50MG (*)] 50 mg PO HS PRN #6 tab 06/07/18 Departure - Departure Disposition: [facility] Acute Clinical Impression: Anxiety Stroke Qualifiers: CVA mechanism: unspecified Qualified Code(s): I63.9 - Cerebral infarction, unspecified Condition: Fair Report Scribed for: Bre Landon Report Scribed by: Radha Montenegro Date of Report: 06/06/18 Time of Report: 09:03 Physician Review and Approval Statement: Portions of this note were transcribed by a medical sonographer. I personally performed a history, physical exam, medical decision making, and confirmed accuracy of information the transcribed note.
[2018-06-06 09:07] LABS: PLATELET COUNT 211 10^3/uL (150-400)
[2018-06-06] MEDS ORDERED: ONDANSETRON 4 MG/2 ML VIAL IVP PRN (11:50)
[2018-06-06] MEDS ORDERED: ACETAMINOPHEN 325 MG TAB PO PRN (11:50)
[2018-06-06] MEDS ORDERED: ONDANSETRON DISINTEGRATING 4 MG TAB PO PRN (11:50)
--- NOTE | 2018-06-06 11:57 | ASMTCMCOM ---
CM Note CM Note Notes: Patient lives independently between [place] and [place]. He is in the process of permanently relocating to [place], closer to family. He does have support of friends and neighbors here in [place]. Patient has an appointment scheduled with his PCP, Dr. Hans Burgos at [facility] in [place] on Friday06/08/18 at 0900. I have faxed a copy of patient's ER report (including MRI impression) to Dr. Burgos alerting him of patient's admission CM available as needed for discharge planning Date Signed: 06/06/2018 11:56 AM Electronically Signed By:Dina Bennett RN
--- NOTE | 2018-06-06 12:22 | GHP ---
DATE OF ADMISSION: 06/06/2018 HISTORY OF PRESENT ILLNESS: The patient is a pleasant 82-year-old gentleman with a history of pulmon jessica embolism, requiring lytics; gallstone pancreatitis; hypertension; right bundle branch block, who presents with vague symptoms. He endorses a fair amount of stress. He is currently in the process o f moving from [place] back to [place] to be closer to family. He is an active, healthy rocio, bu t he describes 2 distinct, or at least to him, distinct spells, one of which is like a burst in his h ead, but it is not particularly a burst of light. It may be pre-migrainous, but it is not necessaril y followed by a headache. He does not have slurred speech or difficulty accessing words or numbness or weakness of any part of his body during these spells. He says that they come on at rest, typicall y when he is lying down. Additionally, he describes a second spell where he feels dizzy. It sounds like the dizziness is if h is head is spinning. He has had an episode where he did fall and land on his face. He has not lost consciousness. He does not have palpitations. He does not take any clarissa agents. He is not bradyca rdic here. He has no previous history of cardiac arrhythmia, nor does he have a history of coronary disease. He is not short of breath. He does have a dry cough, which he attributes to an upper respi ratory infection he obtained recently traveling to [place] as part of his moving back to [facility]. He says his symptoms come on at night, and he is anxious about going to sleep. REVIEW OF SYSTEMS: Complete 10-point review of systems conducted and negative, except as noted in th e HPI. PAST MEDICAL HISTORY: 1. Pulmonary embolism in 2016, requiring thrombolysis. 2. Neck hematoma secondary to thrombolysis. 3. Gallstone pancreatitis, status post cholecystectomy. 4. History of chronic right lower extremity edema. 5. Hypertension. ALLERGIES: No known drug allergies. HOME MEDICATIONS: Eliquis and Norvasc. SOCIAL HISTORY: Has an alcoholic drink per day. 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 He is moving back to [facility]. FAMILY HISTORY: Parents . PHYSICAL EXAMINATION: PRESENTING VITALS: Temp 36.4, blood pressure 184/106, pulse 90, breathing 18 times a minute, 92% on room air. GENERAL: Anxious, but otherwise in no acute distress. HEENT: Scl erae anicteric. Oropharynx clear. Mucous membranes are moist. NECK: Supple, without lymphadenopat hy or JVD. LUNGS: Clear to auscultation bilaterally. There are some scattered rhonchi. There are no wheezes. HEART: S1, S2, not tachycardic. ABDOMEN: Soft, nontender, nondistended. LOWER EXTREM ITIES: 1+ edema in the right lower extremity. There is none on the left. Calves are nontender. SK IN: Without rash. NEUROLOGIC: Exam is nonfocal, including cranial nerves 2 through 12 are intact, and upper extremity and lower extremity strength are 5/5 bilaterally. Cerebellar testing is not done . EKG interpreted by me shows a right bundle branch block pattern with a left anterior fascicular block . These are not new findings. There are the associated ST or T-wave changes. Rhythm is sinus. I h leathae discussed the case with Dr. Bre Landon. LABS: White count 6, hematocrit 43, platelets 211,000. Sodium 139, potassium 3.9, chloride 105, bic arb 26, BUN 14, creatinine 0.8, glucose 88. Troponin less than 0.012. MRI of the brain shows subcen timeter acute lacunar infarct of the posterior corpus callosum/splenium. No epidural or subdural hem atoma. Moderate diffuse cerebral atrophy, severe microvascular ischemic gliosis. ASSESSMENT AND PLAN: An 82-year-old gentleman with spells and subacute stroke [facility]. 1. Spells. He has these 2 spells. The one in which the room is spinning is concerning for possible sequelae of stroke versus arrhythmia. Will follow him on the heart monitor. He does not take clarissa agents. He is not bradycardic. 2. Stroke. We will proceed with a typical stroke workup. He is anticoagulated, with which he has b een compliant. We will check an echocardiogram, lipid panel, and have Neurology see him. 3. Hypertension. The patient is markedly hypertensive today. Uncertain the contribution or cause o f this. We will restart his Norvasc today. I do note his current stroke, and I think his blood pres sure is greater than goal. 4. Anxiety. The patient endorses some anxiety as part of the symptoms. I think the anxiety is more likely to be secondary to what is going on as opposed to causative, but will follow. 5. Burst inside his head. It is difficult to know what to make of this. We will discuss this with Neurology. 6. History of venous thromboembolism. We will continue his Eliquis. There is no intracranial bleed . DISPOSITION: Observation status. /[id number]/MODL
--- NOTE | 2018-06-06 17:05 | ECHO ---
[email or web address] [address] Main: [phone] Fax: Transthoracic Echocardiogram Name: VIN JONES MR#: [id number] Study Date: 06/06/2018 Study Time: 02:09 PM Date of : 1935 Age: 82 year(s) Height: 182.9 cm (72 in.) Weight: 92.99 kg (205 lb.) BSA: 2.15 m2 Gender: Male Examination: Echo Indication: Ischemic Stroke Image Quality: Adequate Contrast: Requested by: Izaiah Arechiga BP: 157 mmHg/99 mmHg Heart Rate: Rhythm: Indication: Ischemic Stroke Procedure Staff Research Program Assistant: Nisreen Franklin [facility] Reading Physician: Char Lobato MD Requesting Provider: Conclusions: Normal size left ventricle. Mild concentric LV hypertrophy. Low normal left ventricular systolic function. The ejection fraction is estimated to be 50-55 %. There is paradoxic septal motion suggestive of bundle branch block, paced cardiac rhythm, or prior cardiac surgery. Upper normal size right ventricle. Mildly reduced RV function. The left atrium is mildly dilated. The right atrium is mildly to moderately dilated. Mild mitral valve regurgitation is present. Trivial tricuspid valve regurgitation. Right ventricular systolic pressure measures 28mmHg. Trivial pericardial effusion. Compared with prior study dated 09/14/2015 are V is less dilated with improved systolic function. Estimated PA systolic pressure is now normal previously 54 mmhg. no obvious cardiac source of embolism on this study. Measurements: Chambers Valvular Assessment AV/MV Valvular Assessment TV/PV Normal Normal Normal Name Value Range Name Value Range Name Value Range Ao Keiko (2D): 3.8 cm (1.4 cm-2.6 AV Vmax: 2.00 m/s (1 m/s-1.7 TR Vmax: 2.42 mm/s ( - ) cm) m/s) TR PGmax: 23 mmHg ( - ) IVSd (2D): 1.2 cm (0.6 cm-1.1 AV maxP mmHg ( - ) syst. PAP: 28 mmHg ( - ) cm) AV meanP mmHg ( - ) PV Vmax: 1.19 m/s (0.6 m/s-0.9 LVDd (2D): 4.5 cm (4.2 cm-5.9 MAE (VTI): 1.7 cm ( - ) m/s) cm) MV E Vmax: 0.39 m/s ( - ) PV PGmax: 6 mmHg ( - ) LVDs (2D): 3.2 cm (2.1 cm-4 MV A Vmax: 0.83 m/s ( - ) cm) MV E/A: 0.47 ( - ) Patient: VIN JONES Study Date: 06/06/2018 Page 1 of 3 02:09 PM LVPWd (2D): 1.2 cm (0.6 cm-1 MV PHT: 0.083 s ( - ) cm) MVA (PHT): 2.7 s ( - ) LVOTd 2.0 cm 2.0 cm mm LVEF (MOD2): 56 % (>=55 %) EF Range: 50-55 % RVDd(2D): 3.8 cm (1.9 cm-3.8 cmmm) Continued Measurements: Chambers Valvular Assessment AV/MV Valvular Assessment TV/PV Name Value Name Value Name Value LADs: 4.3 cm MV DecTime: 261 m/s CVP (est.): 5 mmHg LADs Lon.4 cm MV E' Septal: 0.07 m/s LA Area: 24.4 cm2 MV E/E' Septal: 5.50 LA Volume: 85 ml MV E/E' Lateral: 4.10 LA Volume Index: 39.5 ml/m2 RA Area: 22.6 cm2 Additional Vessels Name Value Ao Ascendin.5 cm Inferior Vena Cava: 1.6 cm Findings: Left Ventricle: Normal size left ventricle. Mild concentric LV hypertrophy. Low normal left ventricular systolic function. The ejection fraction is estimated to be 50-55 %. There is paradoxic septal motion suggestive of bundle branch block, paced cardiac rhythm, or prior cardiac surgery. Right Ventricle: Upper normal size right ventricle. Mildly reduced RV function. Left Atrium: The left atrium is mildly dilated. Right Atrium: The right atrium is mildly to moderately dilated. Mitral Valve: The mitral valve is normal in appearance and function. Mild mitral valve leaflet calcification is present. Mild mitral valve regurgitation is present. No mitral stenosis is present. Aortic Valve: The aortic valve is tri-leaflet. Aortic sclerosis is present. There is no significant aortic valve regurgitation. No aortic valve stenosis is present. Tricuspid Valve: The tricuspid valve is normal in appearance and function. Trivial tricuspid valve regurgitation. The pulmonary artery pressure is normal. Right ventricular systolic pressure measures 28mmHg. Pulmonic Valve: The pulmonic valve is normal in appearance and function. Aorta: The aorta is normal. Normal size aortic root measuring 3.8 cm. Normal size ascending aorta measuring 3.5 cm. IVC: The IVC is normal sized. Pericardium: Trivial pericardial effusion. Exam Comments: (No Signature Object) Patient: VIN JONES Study Date: 06/06/2018 Page 2 of 3 02:09 PM Patient: VIN JONES Study Date: 06/06/2018 Page 3 of 3 02:09 PM [id number]
--- NOTE | 2018-06-06 19:55 | CPEKG ---
Test Reason : OPEN Blood Pressure : / mmHG Vent. Rate : 087 BPM Atrial Rate : 086 BPM P-R Int : 202 ms QRS Dur : 151 ms QT Int : 413 ms P-R-T Axes : -32 -69 013 degrees QTc Int : 497 ms Sinus rhythm RBBB and LAFB Confirmed by Bre Landon ([id number]) on 06/06/2018 7:54:26 PM Referred By: Confirmed By:Bre Landon
[2018-06-06] MEDS: APIXABAN 5 MG TAB PO SCH (20:08)
[2018-06-06] MEDS ORDERED: traZODone 50 MG TAB PO SCH (21:00)
[2018-06-07 04:38] VITALS: BP 149/94
[2018-06-07] MEDS: APIXABAN 5 MG TAB PO SCH (08:54)
[2018-06-07] MEDS ORDERED: ASPIRIN 81 MG CHEWABLE TAB PO SCH (09:00)
--- NOTE | 2018-06-07 11:07 | GCON ---
NEUROLOGIC CONSULTATION HISTORY: The patient is an 82-year-old gentleman who I am asked to see in neurologic consultation re garding possible acute stroke. The history is obtained from reviewing the medical records, as well a s discussions with the patient, but it is challenging to fully understand exactly what he is experien cing. Even with careful questioning, he can be rather pressured in his speech and tangential. In an y case, he says that for most of his life, he certainly has had some degree of anxiety. He has never considered himself to be depressed. He says that he might have had panic attacks in the past, but t hat is a little more hard to nail down. He says he has not been under the care of a psychiatrist or ever medicated for bipolar disease. 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 Emmanuel hurst is also very occupied with transitioning from the [facility] where he apparently has property [employer] to [place] where he wants to be again. He tells me that 3 weeks ago, he had an episode where he suddenly lost consciousness and hit his face and had bleeding. He has a history of pulmonary embolism and is currently on Eliquis. This occurre d when he was in the [place] region and says he did not seek acute medical care. He said he trie d to set up an appointment with Dr. Burgos, his primary care provider here, and has an appointment scheduled for tomorrow. He has not had chest pain or palpitations or shortness of breath. He then d escribes other episodes that can occur at least once a week in which he is lying in bed and may be as leep or trying to fall asleep and have what he describes as many seconds of an overwhelming explosion in his head or symptoms that might involve lightheadedness or vertigo. He had this occur 2 nights b efore he came in and the night before, and the one before he came to the emergency room yesterday, he apparently found himself on the floor and he is not sure what happened. As a result of this, he has been admitted for further evaluation. His MRI shows extensive deep white matter and periventricular white matter change, including white ma tter ischemic change in the james and the only area of possible acute ischemia is in the splenium of t gogo corpus callosum on diffusion-weighted imaging where there is a subcentimeter area of mild hyperint ensity, but certainly not very bright signal; however, it was felt that it could represent subacute c erebral ischemia. He has had echocardiogram that is unremarkable and carotid ultrasound is pending. His laboratory studies shows that his LDL cholesterol is 96. The patient came into the hospital with blood pressure 180 or so systolic and has been in the 150-170 range for the most part, and the most recent reading this morning is 144/95. The temperature 36.7, pulse of 76, respirations 15. 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 I do not know definitively how much of this is completely accu rate, but that is hard to ascertain right now. The additional history we have is that he does not have a known history of stroke. In 2016, he had a pulmonary embolism and got thrombolysis and has been on Eliquis since then. 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 He is also on Norvasc for his blood pressure. ALLERGIES: No drug allergies. SOCIAL HISTORY: He says he has about 1 drink of alcohol per day. Not smoking. REVIEW OF SYSTEMS: He is denying feeling headache. He tells me in the last 14 days, he has probably slept just a few hours at night, and on some nights, he has not had any sleep. He estimated 3 e last 14 nights he has not had any sleep. It is not unusual for him to function at a very high leve l with lack of sleep and he says he has done that much of his life. PHYSICAL EXAMINATION: NEUROLOGIC/PSYCHIATRIC: Pupils are 3 mm and reactive. Extraocular movements are intact. He is awake, alert, and attentive, and hypervigilant with pressured speech and some rojas entiality and circumferential speech. He speaks very much and perseverates on issues related to his research and stress with his getting back to [place], and the current political state of [facility] without expressing any definitive delusional thinking; however, the degree of activity that emmanuel hurst has and his productivity is hard for me to confirm right now. He will acknowledge that his level o f energy is high and has always been fairly high. He was very kind and complimentary of the hospital system and everyone he is working with. He does not express any homicidal or suicidal ideations. Ot herwise, normal facial sensation and strength. Palate elevates symmetrically. Tongue protrudes midl ine. Motor exam: Normal muscle bulk and tone with 5/5 strength. He has a very mild postural and ac tion tremor on [id number]. His gait is steady. He has been assessed by physical therapy and [facility] to be safe for ambulation independently. Sensation is preserved for temperature and light touch . Reflexes 1+. His NIH Stroke Scale is 0. DIAGNOSTIC DATA: I have reviewed the imaging studies and other diagnostic studies as well. IMPRESSION: Total unit time of 55 minutes. The patient has experienced some peculiar episodes often during sleep and associated with hyperadrenergic state and sometimes falling out of the bed, as well as 3 weeks ago an event where he reports losing consciousness briefly and striking his face. It is unclear exactly what is happening. I do not think he is having seizures or definite TIA. He certain ly could, however. Cardiac arrhythmia would be a differential consideration, but far from certain. 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 Even now, he talks about continuing to be driven towards research and doing activities, which may very well be true, but seems a little bit peculiar to me. The lack of sleep or minimal sleep he is getting for weeks at a time is not a brand new pattern for him and that would also support a somewhat hypomanic state. He did describe sleeping extremely well last night for the first time in a while after receiving some trazodone. In reviewing the MRI, he does have evidence of chronic vascular disease to at least a moderate degree and the only area of potential acute ischemic changes in the splenium of the corpus callosum and pj t is quite subtle. He is already on full anticoagulation, which I would continue. I think statin th erapy is an option, but would defer to further decisions with primary care on this issue. If this is , in fact, stroke, then statin therapy would be indicated, but I am not certain we have seen stroke o n his imaging. I would recommend he have at least a psychiatric consultation as an outpatient and have formal sleep study as well to best document what might be happening during the sleep events. He should probably e stablish care when he gets back to [place] with either neurologist and/or psychiatrist to see i f they feel there is any indication for managing this anxiety state or hypomanic state pharmacologica lly versus psychotherapy. He was certainly receptive to these issues and did not become defensive and understands that he does have a very high level of energy. /[id number]/MODL
--- NOTE | 2018-06-07 13:24 | HOSPPROG ---
Hospitalist Progress Note Assessment/Plan: 82 yo M w vague spells MRI read as stroke, neurology not convinced hypomanic home today w pcp follow up see dc summary Subjective: case d/w dr phillips. tele: no events. carotid u/s- patent. echo : unremarkable Objective: Vital Signs Temp Pulse Resp BP Pulse Ox 36.7 C 76 15 149/94 H 96 06/07/18 04:00 06/07/18 04:00 06/07/18 04:00 06/07/18 08:54 06/07/18 04:00 06/06/18 06/07/18 06/08/18 05:59 05:59 05:59 Intake Total 450 Balance 450 - Physical Exam Constitutional: no apparent distress, appears nourished Eyes: PERRL, anicteric sclera Ears, Nose, Mouth, Throat: moist mucous membranes, hearing normal Cardiovascular: regular rate and rhythym, no murmur, rub, or gallop Respiratory: no respiratory distress, no rales or rhonchi Gastrointestinal: normoactive bowel sounds, soft, non-tender abdomen Genitourinary: no bladder fullness, No arteaga in urethra Skin: warm, normal color Musculoskeletal: full muscle strength, no muscle tenderness Neurologic: AAOx3 Psychiatric: No depressed ICD10 Worksheet Patient Problems: Problems Problem Status Onset Stroke Acute Abdominal discomfort Acute Elevated troponin Acute Gallstone pancreatitis Acute Hypokalemia Acute
--- NOTE | 2018-06-07 14:44 | GDS ---
DISCHARGE DIAGNOSES: 1. Vague spells, concern for stroke. 2. Possible but unlikely stroke seen on MRI in the posterior corpus callosum. 3. 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 4. History of pulmonary embolism, on anticoagulation. CONSULTS DURING THIS ADMISSION: Neurology. Please see admission history and physical, but patient bahman resented with a number of spells. He had an MRI showing no acute event other than the subcentimeter possible event in the corpus callosum. This was reviewed by Neurology and felt it less consistent wi th stroke. He had patent carotid arteries. He does not have diabetes. He had negative troponins. He had no events on telemetry and he had normal carotid Dopplers showing no evidence of significant v ascular disease. Additionally, he had an echocardiogram showing slightly elevated right pulmonary pr essures which are decreased from 54 previously in the setting of a large PE. He has a bundle branch block with paradoxical septal motion but intact LV function. The patient was admitted with the afore mentioned stroke workup. He was seen by Neurology who felt the patient to be hypomanic in nature. Emmanuel hurst is discharged home. Notably, he received trazodone for sleep and the first sleep that emmanuel hurst had received, per his claim, of 48 hours. He was rather bullish about this medication. He was giv en 6 pills and discharged and recommended to follow up with his primary care physician. I will attem pt to call his primary care physician and relay the details. The patient is moving to [place] to the [facility] and geriatric psychiatrist is recommended f or him. /[id number]/MODL
== END 2018-06-07 14:27 | disposition home or self-care (01) ==
LOC: OBSVTOIN 11:24 → INTOOBSV 11:24 → F3N 11:54
PROVIDERS: ADMIT Internal Medicine; ATTEND Internal Medicine
DX: R42 Dizziness and giddiness (principal); R90.89 Other abnormal findings on diagnostic imaging of central nervous system; I45.10 Unspecified right bundle-branch block; F30.8 Other manic episodes; F41.9 Anxiety disorder, unspecified; I10 Essential (primary) hypertension; Z86.711 Personal history of pulmonary embolism; Z79.01 Long term (current) use of anticoagulants
CPT/HCPCS: 70551; 71046; 92523; 93005; 93306; 93880; 97161; 97165; 99285; G0378; G8978; G8979; G8980; G8987; G8988; G8989; G9168; G9169; G9170; 84484-PO